=== PATIENT | male | born 1970 | race Caucasian/White ===

== ENCOUNTER 2018-05-08 12:29 | Day surgery (SDC) | payer OTHER ==
[~2018-05-08] VITALS: Ht 172.7 cm; Wt 90.5 kg
[2018-05-08 13:16] VITALS: BP 141/86; PULSE 52; TEMP 97.6
[2018-05-08] MEDS ORDERED: DESYREL 100MG100 MG PO (13:30)
[2018-05-08] MEDS ORDERED: DITROPAN XL10 MG PO (13:31)
[2018-05-08] MEDS ORDERED: LIPITOR20 MG PO (13:32)
[2018-05-08] MEDS ORDERED: GEODON80 MG PO (13:33)
[2018-05-08] MEDS ORDERED: DOXYCYCLINE 10100 MG PO (13:34)
[2018-05-08] MEDS ORDERED: CELEBREX 200MG200 MG PO (13:35)
[2018-05-08] MEDS ORDERED: ZYLOPRIM 300MG300 MG PO (13:36)
[2018-05-08] MEDS ORDERED: BUSPAR DIVIDOSE15 MG PO (13:37)
[2018-05-08] MEDS ORDERED: WELLBUTRIN SR150 M1 PO (13:37)
[2018-05-08] MEDS ORDERED: NEURONTIN600 MG/TAB PO (13:38)
[2018-05-08] MEDS ORDERED: MULTIPLE VITAMI1 CAP PO (13:40)
[2018-05-08] MEDS ORDERED: VITAMINC1000TA PO (13:41)
[2018-05-08 16:22] VITALS: BP 129/79; PULSE 75; TEMP 97.5
--- NOTE | 2018-05-08 16:22 | NUR ---
TO RM 8 PER CART FROM OR. RECEIVED INSTRUCTIONS ON HOW TO USE PERMANENT INTERSTIM IMPLANT BY [employer] REP. SON AND PATIENT IN ROOM DURING INSTRUCTIONS. DRESSINGS CLEAN DRY INTACT.
[2018-05-08 16:35] VITALS: BP 138/89; PULSE 63
--- NOTE | 2018-05-08 16:35 | NUR ---
RECEIVED WATER AND JELLO. STATED HE WANTED TO EAT OUT WITH SON SO DIDN'T WANT MUCH.
[2018-05-08 16:50] VITALS: BP 153/90; PULSE 70
--- NOTE | 2018-05-08 16:50 | NUR ---
TOLERATED PO WELL
--- NOTE | 2018-05-08 17:00 | NUR ---
UP AMBULATED TO BATHROOM AND VOIDED. TOLERATED WELL AND WALKED BACK TO BED.
--- NOTE | 2018-05-08 17:00 | NUR ---
UP AMBULATED TO BATHROOM AND TOLERATED WELL.
--- NOTE | 2018-05-08 17:10 | NUR ---
RECEIVED DISCHARGE INSTRUCTIONS DISCONTINUED IV AND INT- CATHETER INTACT COVERED WITH COTTON BALL AND COBAN.
--- NOTE | 2018-05-08 17:21 | NUR ---
DISCHARGED PER WC BY NURSING STAFF TO PRIVATE CAR IN CARE OF SON-JONATHAN
== END 2018-05-08 17:34 | disposition home or self-care (01) ==
LOC: SDCO 12:29
DX: N32.81 Overactive bladder (principal); R35.0 Frequency of micturition; N39.41 Urge incontinence; R35.1 Nocturia; G89.29 Other chronic pain; E78.2 Mixed hyperlipidemia; M10.9 Gout, unspecified; F41.9 Anxiety disorder, unspecified; F31.9 Bipolar disorder, unspecified; G47.00 Insomnia, unspecified; Z90.49 Acquired absence of other specified parts of digestive tract; Z98.84 Bariatric surgery status; Z88.0 Allergy status to penicillin; F17.210 Nicotine dependence, cigarettes, uncomplicated; Z79.899 Other long term (current) drug therapy
CPT/HCPCS: C1767; C1778; C1787; C1894; J0690; J1580; J1885; J2250; J2704; J3010; J7120